=== PATIENT | female | born 1980 | race Caucasian/White ===

== ENCOUNTER → 2018-01-27 09:28 | Outpatient (CLI) | payer BC, SELFPAY ==
[2018-02-02 11:22] LABS: HPV APTIMA, High Risk Negative (Negative)
== END ==
PROVIDERS: Family Provider Family Medicine; PCP Family Medicine; Visit Provider Nurse Practitioner Women's Health
DX: Z12.4 Encounter for screening for malignant neoplasm of cervix (principal)
CPT/HCPCS: 88175; G0145

== ENCOUNTER → 2018-04-26 13:52 | Outpatient (CLI) | payer BC, SELFPAY ==
--- NOTE | 2018-04-26 13:54 | ECHOD_ITS ---
Reason For Study: ARRYTHMIA Procedure This was a 2D Doppler, Color Flow transthoracic echocardiogram. Technically limited apical views due to patient breast implants. Exam performed in department. Left Ventricle Normal LV size. Left ventricular systolic function is normal. The estimated ejection fraction is 60 %. No evidence for diastolic dysfunction. No regional wall motion abnormalities noted. Right Ventricle Normal RV size. Normal systolic function. Atria Normal left atrium. Normal right atrium. Mitral Valve Normal mitral valve. Tricuspid Valve Normal tricuspid valve. Aortic Valve Normal aortic valve. Trisinus/trileaflet aortic valve. Pulmonic Valve Normal pulmonic valve. Great Vessels Normal aortic root. The pulmonary artery is normal size. Pericardium/Pleural No pericardial effusion. MMode/2D Measurements & Calculations LVIDd: 3.7 cm IVSd: 0.68 cm LA dimension: 2.6 cm LVIDs: 2.5 cm LVPWd: 0.66 cm RVDd: 2.9 cm FS: 32.4 % LAV(MOD-sp4): 19.7 ml LA A4 area: 10.5 cm2 RA A4 area: 8.6 cm2 Time Measurements MV dec time: 0.23 sec Doppler Measurements & Calculations MV E max valerio: 64.2 cm/sec Lat Peak E' Valerio: 9.7 cm/sec Med Peak E' Valerio: 11.8 cm/sec MV A max valerio: 50.7 cm/sec E/E' lat: 6.6 E/E' med: 5.4 MV E/A: 1.3 Ao V2 max: 114.4 cm/sec LV V1 max: 76.1 cm/sec PA V2 max: 90.9 cm/sec Ao max P.2 mmHg LV V1 max P.3 mmHg Interpretation Summary Normal LV size. Left ventricular systolic function is normal. The estimated ejection fraction is 60 %. No evidence for diastolic dysfunction. Compared to prior study, there is no significant change. Ordering Physician: Edouard Nash Referring Physician: HERNANDEZ BLOOM Performed By: Tiffanie Patirck RDCS
== END ==
PROVIDERS: Family Provider Family Medicine; PCP Family Medicine; Visit Provider Internal Medicine Cardiovascular Disease
DX: R94.31 Abnormal electrocardiogram [ECG] [EKG] (principal)
CPT/HCPCS: 93306

== ENCOUNTER → 2018-05-04 09:00 | Outpatient (CLI) | payer BC, SELFPAY ==
[2018-05-04 12:10] LABS: Absolute Lymphocyte Count 1.31 X10^3/ul (0.83-4.51); Absolute Neutrophil Count 3.8 X10^3/uL (2.0-7.7); Basophil# 0.01 X10^3/uL; Basophil% 0.2 % (0-1); Eosinophil# 0.06 X10^3/uL; Eosinophils% 1.1 % (0-5); Hemoglobin 13.6 g/dl (12.0-15.0); Lymphocyte # 1.31 X10^3/ul (4.0); Lymphocyte % 23.6 % (19-41); Mean Corpuscular Hgb 29.7 pg (27.0-32.0); Mean Corpuscular Volume 87.3 fL (81-99); Mean Platelet Vol. 10.4 fl (6.2-12.0); Monocyte% 7.2 % (0-10); Neutrophil # 3.76 X10^3/uL (2.7-7.7); Neutrophil % 67.7 % (47-70); Platelet Count 232 K/mm3 (150-450); RBC Distribution Width CV 12.2 % (11.6-14.6); RBC Distribution Width SD 38.9 fl (35.1-43.9); Red Blood Count 4.58 M/mm3 (4.2-5.4); White Blood Count 5.6 K/mm3 (4.4-11.0)
[2018-05-04 12:11] LABS: POSITIVE COUNT NO; POSITIVE DIFFERENTIAL NO; POSITIVE MORPHOLOGY NO
[2018-05-04 12:28] LABS: T3 Total - Triiodothyronine 0.86 ng/mL (0.6-1.81)
[2018-05-04 12:33] LABS: ALB/GLOB Ratio 1.2 RATIO (0.9-2.4); AST(SGOT) 13 U/L (15-37); Alanine Aminotransfer ALT/SGPT 20 U/L (13-56); Albumin, Serum 4.1 g/dL (3.2-5.0); Alkaline Phosphatase 49 U/L (45-117); Anion Gap 8 (5-15); BUN 15 mg/dL (7-18); BUN/Creat Ratio 14.6 RATIO (10-20); Calcium,Total 9.2 mg/dL (8.5-10.1); Chloride 106 mmol/L (98-107); Cholesterol 138 mg/dL (200); Creatinine, Serum 1.03 mg/dL (0.55-1.02); EST Glomerular Filtration Rate 63 mL/min (>60); Est Glom Filt Rate - Afr Amer 77 mL/min (>60); Ferritin 26 ng/mL (8-252); Globulin 3.4 g/dL (2.2-4.2); Glucose 62 mg/dL (74-106); High Density Lipoprotein 62 mg/dL; Iron 80 ug/dL (50-170); Protein, Total 7.5 g/dL (6.4-8.2); Sodium Level 141 mmol/L (136-145); T4 Free Direct 1.06 ng/dL (0.76-1.46); Thyroid Stim Hormone (TSH) 1.85 uIU/mL (0.358-3.74); Triglycerides 38 mg/dL; Very Low Density Lipoprotein 8 mg/dL (5-40)
== END ==
PROVIDERS: Family Provider Family Medicine; PCP Family Medicine; Visit Provider Family Medicine
DX: R53.83 Other fatigue (principal); Z51.81 Encounter for therapeutic drug level monitoring; E78.5 Hyperlipidemia, unspecified; E61.1 Iron deficiency
CPT/HCPCS: 36415; 80053; 80061; 82728; 83540; 84439; 84443; 84480; 85025

== ENCOUNTER → 2020-07-24 09:24 | Outpatient (CLI) | payer BC, SELFPAY ==
[2018-01-27 10:23] VITALS: BMI 20.7
[2020-07-24 12:25] LABS: Absolute Lymphocyte Count 1.38 X10^3/uL (0.83-4.51); Absolute Neutrophil Count 4.6 X10^3/uL (2.0-7.7); Basophil# 0.03 X10^3/uL; Basophil% 0.5 % (0-1); Eosinophil# 0.07 X10^3/uL; Eosinophils% 1.1 % (0-5); Hematocrit 42.1 % (37-47); Hemoglobin 14.2 g/dL (12.0-15.0); Lymphocyte # 1.38 X10^3/ul (4.0); Lymphocyte % 21.5 % (19-41); Mean Corp Hgb Conc 33.7 g/dL (32-36); Mean Corpuscular Hgb 29.6 pg (27.0-32.0); Mean Corpuscular Volume 87.7 fL (81-99); Mean Platelet Vol. 10.1 fl (6.2-12.0); Monocyte# 0.36 X10^3/uL; Monocyte% 5.6 % (0-10); NRBC Flagged by Analyzer 0 % (0-5); Neutrophil # 4.57 X10^3/uL (2.7-7.7); Platelet Count 295 K/mm3 (150-450); RBC Distribution Width SD 38.6 fl (35.1-43.9); White Blood Count 6.4 K/mm3 (4.4-11.0)
[2020-07-24 12:27] LABS: ALB/GLOB Ratio 1.2 RATIO (0.9-2.4); AST(SGOT) 11 U/L (15-37); Alanine Aminotransfer ALT/SGPT 17 U/L (13-56); Albumin, Serum 4.2 g/dL (3.2-5.0); Alkaline Phosphatase 53 U/L (45-117); Anion Gap 7 (5-15); BUN 16 mg/dL (7-18); BUN/Creat Ratio 15.2 RATIO (10-20); Calcium,Total 9.1 mg/dL (8.5-10.1); Chloride 104 mmol/L (98-107); Cholesterol 155 mg/dL (200); Creatinine, Serum 1.05 mg/dL (0.55-1.02); EST Glomerular Filtration Rate 61 mL/min (>60); Est Glom Filt Rate - Afr Amer 74 mL/min (>60); Globulin 3.5 g/dL (2.2-4.2); Glucose 80 mg/dL (74-106); High Density Lipoprotein 68 mg/dL; Potassium 3.8 mmol/L (3.5-5.1); Protein, Total 7.7 g/dL (6.4-8.2); Sodium Level 138 mmol/L (136-145); Triglycerides 40 mg/dL; Very Low Density Lipoprotein 8 mg/dL (5-40)
== END ==
PROVIDERS: PCP Family Medicine; Visit Provider Family Medicine
DX: Z13.220 Encounter for screening for lipoid disorders (principal); Z13.1 Encounter for screening for diabetes mellitus; R53.83 Other fatigue
CPT/HCPCS: 36415; 80053; 80061; 85025

== ENCOUNTER → 2022-12-04 | Outpatient (CLI) | payer BC, SELFPAY ==
[2022-12-04 17:09] LABS: Anion Gap 3 (5-15); BUN 15 mg/dL (7-18); BUN/Creat Ratio 14.9 RATIO (10-20); Calcium,Total 9.4 mg/dL (8.5-10.1); Chloride 105 mmol/L (98-107); Creatinine, Serum 1.01 mg/dL (0.55-1.02); EST Glomerular Filtration Rate 63 mL/min (>60); Est Glom Filt Rate - Afr Amer 77 mL/min (>60); Glucose 92 mg/dL (74-106); Potassium 4.4 mmol/L (3.5-5.1); Sodium Level 139 mmol/L (136-145); Thyroid Stim Hormone (TSH) 2.14 uIU/mL (0.358-3.74)
== END | disposition home or self-care (01) ==
LOC: LAB 15:52
PROVIDERS: PCP Family Medicine; Visit Provider Internal Medicine Cardiovascular Disease
DX: I48.91 Unspecified atrial fibrillation (principal)
CPT/HCPCS: 36415; 80048; 83735; 84443

== ENCOUNTER → 2023-01-06 | Outpatient (CLI) | payer BC, SELFPAY ==
[2023-01-06 15:26] LABS: Erythrocyte Sedimentation Rate 8 mm/hr (0-30)
[2023-01-06 15:34] LABS: ALB/GLOB Ratio 1.3 RATIO (0.9-2.4); AST(SGOT) 17 U/L (15-37); Alanine Aminotransfer ALT/SGPT 23 U/L (13-56); Albumin, Serum 4.2 g/dL (3.2-5.0); Alkaline Phosphatase 55 U/L (45-117); Anion Gap 6 (5-15); BUN 20 mg/dL (7-18); BUN/Creat Ratio 20.7 RATIO (10-20); CRP < 2.90 mg/L (0.0-3.0); Calcium,Total 9.2 mg/dL (8.5-10.1); Chloride 105 mmol/L (98-107); Creatinine, Serum 0.97 mg/dL (0.55-1.02); EST Glomerular Filtration Rate 66 mL/min (>60); Est Glom Filt Rate - Afr Amer 80 mL/min (>60); Globulin 3.3 g/dL (2.2-4.2); Glucose 82 mg/dL (74-106); Potassium 3.9 mmol/L (3.5-5.1); Protein, Total 7.5 g/dL (6.4-8.2); Sodium Level 137 mmol/L (136-145)
[2023-01-06 15:41] LABS: Absolute Lymphocyte Count 1.78 X10^3/uL (0.83-4.51); Absolute Neutrophil Count 4.1 X10^3/uL (2.0-7.7); Basophil# 0.02 X10^3/uL; Basophil% 0.3 % (0-1); Eosinophil# 0.09 X10^3/uL; Eosinophils% 1.4 % (0-5); Hemoglobin 13.6 g/dL (12.0-15.0); Lymphocyte # 1.78 X10^3/ul (0.83-4.51); Lymphocyte % 27.8 % (19-41); Mean Corpuscular Hgb 29.1 pg (27.0-32.0); Mean Corpuscular Volume 85.7 fL (81-99); Mean Platelet Vol. 10.8 fl (6.2-12.0); Monocyte# 0.45 X10^3/uL; NRBC Flagged by Analyzer 0 % (0-5); Neutrophil # 4.06 X10^3/uL (2.7-7.7); Neutrophil % 63.3 % (47-70); Platelet Count 254 K/mm3 (150-450); RBC Distribution Width CV 12.2 % (11.6-14.6); Red Blood Count 4.67 M/mm3 (4.2-5.4); White Blood Count 6.4 K/mm3 (4.4-11.0)
[2023-01-08 15:08] LABS: Endomysial Antibody IgA Negative (Negative)
[2023-01-08 15:09] LABS: Immunoglobulin A 140 mg/dL (87-352); t-Transglutaminase IgA <2 U/mL (0-3)
== END | disposition home or self-care (01) ==
LOC: BFHLAB 12:13
PROVIDERS: PCP Family Medicine; Referring Provider Family Medicine; Visit Provider Family Medicine
DX: R10.9 Unspecified abdominal pain (principal); K21.00 Gastro-esophageal reflux disease with esophagitis, without bleeding; R14.0 Abdominal distension (gaseous)
CPT/HCPCS: 36415; 80053; 82784; 83516; 85025; 85652; 86140; 86255

== ENCOUNTER → 2023-01-14 | Outpatient (CLI) | payer BC, SELFPAY ==
--- NOTE | 2023-01-14 17:08 | RAD_ITS ---
INDICATION: NECK PAIN EXAMINATION/TECHNIQUE: X-RAY - XR Spine Cervical 6 or More Views COMPARISON: None. FINDINGS: VERTEBRAE: Vertebral body height is maintained. Disc space narrowing marginal osteophyte formation at C5-6. No evidence of fracture destructive bony process. No abnormal alignment on flexion and extension views. Odontoid process and prevertebral soft tissue planes have normal appearance. DISCS: Disc space narrowing at C5-6. Neural foramina are widely patent bilaterally. NECK SOFT TISSUES: No prevertebral soft tissue widening. LUNG APICES: Clear. RAD/Cerv Spine Obl/Flex/Ext Comp IMPRESSION: 1. Mild cervical spondylosis most notable at C5-6 with disc space narrowing marginal osteophyte formation. 2. No evidence fracture malalignment or abnormal motion.. Electronically Signed: Reilly Dawkins MD at 20:00 EDT ,
== END | disposition home or self-care (01) ==
LOC: MTRAD 17:06
PROVIDERS: PCP Family Medicine; Referring Provider Family Medicine; Visit Provider Family Medicine
DX: M54.2 Cervicalgia (principal); M54.12 Radiculopathy, cervical region
CPT/HCPCS: 72052

== ENCOUNTER 2023-03-04 07:00 | Outpatient (RCR) | payer BC, SELFPAY ==
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
--- NOTE | 2023-03-04 07:35 | HP.PTDCSUM_ITS ---
It has been my pleasure to treat YANNI WOODARD referred by Dr. Dali Hutson DO, with the diagnosis of Cervicalgia and Right Shoulder Pain for a total of 9 visit(s). Discharge Date: 03/04/23 Please see the following information for a summary of their discharge status. Subjective: Pt. reports having some short term relief with some of the manual techniques, but nothing long lasting at this point in time. She does continue to have some burning in her levator scapulae region, especially at work. R scapular region Pain Intensity (Out of 10): 1 % Improvement: 25 Objective/Function: Pt. has good ROM and decent strength, but does tend to fall into more flexed thoracic spine postures. Pt. is able to correct with VCing. We talked and her computer station at work, sounds like it could be modified to assist with proper posture. Pt. to look into this. I talked to her about stren gthening both mid and Upper trap to reduce stress to levator scap region. She is going to add these into her routine. At this point in time, she is going to trial these on her own and follow up with physician if not improving. Goal 1:: Patient will be I with HEP and progression Goal Progress: Progressing Goal 2:: Patient will maintain proper posture t/o tx session to demo increased scap s/s Goal Progress: Progressing Goal 3:: Patient will demo full cervical ROM without pain Goal Progress: Goal Met Goal 4:: Patient will report 80% improvement Goal Progress: Not Progressing Plan: Pt. to trial on her own at this point in time. Pt. will follow up with physician if not improving. She is going to work on stretching and UT/mid trap strengthening to reduce stress to levator scap with all work and recreational activities. Discharge Comments: Pt. will be Dc to HEP at this point in time. She has has some improvement, but plans to work on her strengthening independently at this point in time. Not a ton of improvement has been made, hopefully with further strengthening she will improve more. If there are questions or concerns regarding this patient's physical therapy, please feel free to call me at [phone]. Thank you for the referral of this patient. Sincerely, Westley Monae Sipos, DPT Balance/Gait/Functional tests - Balance/Special Test Scores Oswestry Neck Score: 5
== END 2023-03-04 19:00 | disposition home or self-care (01) ==
LOC: PT 07:00
PROVIDERS: PCP Family Medicine; Visit Provider Family Medicine
DX: M25.511 Pain in right shoulder (principal); M50.322 Other cervical disc degeneration at C5-C6 level
CPT/HCPCS: 97035; 97110; 97140; 97162

== ENCOUNTER → 2023-06-03 | Outpatient (CLI) | payer BC, SELFPAY ==
[2023-06-03 09:05] LABS: Erythrocyte Sedimentation Rate 9 mm/hr (0-30)
[2023-06-03 09:11] LABS: Absolute Lymphocyte Count 1.34 X10^3/uL (0.83-4.51); Absolute Neutrophil Count 8.6 X10^3/uL (2.0-7.7); Basophil# 0.05 X10^3/uL; Basophil% 0.5 % (0-1); Eosinophil# 0.11 X10^3/uL; Hematocrit 41.7 % (37-47); Hemoglobin 13.8 g/dL (12.0-15.0); Lymphocyte # 1.34 X10^3/ul (0.83-4.51); Lymphocyte % 12.6 % (19-41); Mean Corp Hgb Conc 33.1 g/dL (32-36); Mean Corpuscular Hgb 28.8 pg (27.0-32.0); Mean Corpuscular Volume 87.1 fL (81-99); Mean Platelet Vol. 10.5 fl (6.2-12.0); Monocyte# 0.55 X10^3/uL; Monocyte% 5.2 % (0-10); NRBC Flagged by Analyzer 0 % (0-5); Neutrophil # 8.58 X10^3/uL (2.7-7.7); Neutrophil % 80.3 % (47-70); Platelet Count 278 K/mm3 (150-450); RBC Distribution Width CV 11.9 % (11.6-14.6); RBC Distribution Width SD 38.5 fl (35.1-43.9); Red Blood Count 4.79 M/mm3 (4.2-5.4); White Blood Count 10.7 K/mm3 (4.4-11.0)
[2023-06-03 09:17] LABS: Amylase 89 U/L (25-115); CRP 8.48 mg/L (0.0-3.0); Ferritin 21 ng/mL (8-252); LDH 200 U/L (84-246); Lipase 62 U/L (13-75)
[2023-06-06 01:06] LABS: Anti-Centromere B Ab <0.2 AI (0.0-0.9); Anti-Chromatin <0.2 AI (0.0-0.9); Anti-Jo <0.2 AI (0.0-0.9); Anti-Scleroderma-70 AB <0.2 AI (0.0-0.9); Anti-dsDNA Ab <1 IU/mL (0-9); Beef <0.10 kU/L (Class 0); Chocolate <0.10 kU/L (Class 0); Clam <0.10 kU/L (Class 0); Codfish <0.10 kU/L (Class 0); Corn <0.10 kU/L (Class 0); Egg, White <0.10 kU/L (Class 0); Egg, Whole <0.10 kU/L (Class 0); Milk (Cow) <0.10 kU/L (Class 0); Peanut <0.10 kU/L (Class 0); Pork <0.10 kU/L (Class 0); RNP Ab <0.2 AI (0.0-0.9); SCALLOP <0.10 kU/L (Class 0); SESAME SEED <0.10 kU/L (Class 0); SJOGREN'S Anti-SS-A test < 0.2 AI (0.0-0.9); SJOGREN'S Anti-SS-B test < 0.2 AI (0.0-0.9); Shrimp <0.10 kU/L (Class 0); Smith Ab <0.2 AI (0.0-0.9); Soybean <0.10 kU/L (Class 0); Walnut, (Food) <0.10 kU/L (Class 0); Wheat <0.10 kU/L (Class 0)
[2023-06-07 05:06] LABS: Alpha-1-Globulins 0.3 g/dL (0.0-0.4); Alpha-2-Globulins 0.7 g/dL (0.4-1.0); Cytoplasmic Ab (C-ANCA) <1:20 titer (Neg:<1:20); Endomysial Antibody IgA Negative (Negative); Immunoglobulin A 157 mg/dL (87-352); Immunoglobulin E 46 IU/mL (6-495); Immunoglobulin G 1076 mg/dL (586-1602); Immunoglobulin M 106 mg/dL (26-217); Perinuclear Ab (P-ANCA) <1:20 titer (Neg:<1:20); t-Transglutaminase IgA <2 U/mL (0-3)
== END | disposition home or self-care (01) ==
LOC: LAB 08:18
PROVIDERS: PCP Family Medicine; Referring Provider Internal Medicine Gastroenterology; Visit Provider Internal Medicine Gastroenterology
DX: K21.9 Gastro-esophageal reflux disease without esophagitis (principal)
CPT/HCPCS: 36415; 82150; 82728; 82784; 82785; 83516; 83615; 83690; 84165; 85025; 85652; 86003; 86005; 86140; 86225; 86235; 86255; 86256; 86334

== ENCOUNTER → 2023-07-13 | Outpatient (CLI) | payer BC, SELFPAY ==
[2023-07-13 15:47] LABS: Mucous, Urine 0 SEEN /hpf (<or=2+)
[2023-07-13 15:55] LABS: Color, Urine Yellow (Yellow); Glucose, Dipstick Normal (Normal); Ketone-Dipstick Negative (Negative); Leukocyte Esterase-Dipstick 100 /ul (Negative); Nitrite-Dipstick Positive (Negative); Occult Blood-Urine 250 /ul (Negative); Protein-Dipstick 30 mg/dl (Negative); Urine Bilirubin Dipstick Negative (Negative); Urine Clarity Clear (Clear); Urine Urobilinogen 1 mg/dl (Normal)
[2023-07-13 16:09] LABS: Bacteria RARE /hpf (None Seen); Red Blood Cells-Urine 5-10 SEEN /hpf (0-5); Squamous Epithelial Cells - UA 0-5 SEEN /hpf (5-10); White Blood Cells 5-10 SEEN /hpf (0-5)
== END | disposition home or self-care (01) ==
LOC: LABSPEC 15:30
PROVIDERS: PCP Family Medicine; Referring Provider Physician Assistant; Visit Provider Physician Assistant
DX: R30.0 Dysuria (principal); N39.0 Urinary tract infection, site not specified
CPT/HCPCS: 81001; 87086; 87088; 87186

== ENCOUNTER 2023-07-29 07:45 | Day surgery (SDC) | payer BC, SELFPAY ==
[2023-07-29 08:07] VITALS: BP 121/75; PULSE 77; RESP 16; TEMP 36.9; O2SAT 100; BMI 22.8
[2023-07-29] MEDS: Lactated Ringers 1,000 ML 15 ML IV (08:10)
[2023-07-29 08:15] LABS: Internal QC Validated? YES +Cl - CLEAR BKGD; Pregnancy, Urine Negative Negative
[2023-07-29 08:16] LABS: Record Kit Lot#,Urine Preg HCG0000667200
--- NOTE | 2023-07-29 08:45 | EGD_PTH ---
PATIENT: YANNI WOODARD LOC: EN U#:[id number] AGE/SX: 42/F ROOM: RE07/29/[address]: Dr. Cedric Renae DO : 1980 BED: DIS: 07/29/2023 SPEC #: [id number] RECD: 07/29/23 12:11 STATUS: CHAITANYA REJose #: [id number] FRANCK: 07/29/23 08:[address]: Cedric Renae DEPT: SURGICAL PATHOLOGY RECD BY: Marylu Chavez ENTERED: 07/29/23 12:59 SP TYPE: EGD BIOPSY OT DR: Dr. Dali Hutson DO Tissues: A - Esophagus, NOS B - Esophagus, NOS Procedures: Special Stain Group II Surgery Specimen Level IV Alcian Blue/PAS (control) HEADER OPERATION: EGD with biopsy PRE-OP DIAGNOSIS: GERD TISSUE SUBMITTED: A - Distal esophagus biopsy, B - Random esophagus biopsy MICROSCOPIC DIAGNOSIS A. Distal esophagus, biopsy: Fragments of gastroesophageal mucosa with chronic inflammation. Intestinal metaplasia (goblet cell metaplasia) not identified. See comment. B. Esophagus, random biopsy: Fragments of benign squamous epithelium. A minute fragment of gastric epithelium. Intestinal metaplasia (goblet cell metaplasia) not identified. See comment. PRISCILLA:ayo 07/30/2023 COMMENT A & B. Alcian blue/PAS stain with matched control is used in the evaluation of the specimen. MICROSCOPIC DESCRIPTION Slides are reviewed. GROSS DESCRIPTION A - Received in fixative is one container labeled with the patient's name and designated distal esophagus. The specimen consists of multiple irregular fragments of light camargo soft tissue that in aggregate measure 1.0 x 0.3 x 0.1 cm. The specimen is totally submitted in one cassette. B - Received in fixative is one container labeled with the patient's name and designated random esophagus biopsy. The specimen consists of multiple irregular fragments of light camargo soft tissue that in aggregate measure 1.0 x 0.4 x 0.1 cm. The specimen is totally submitted in one cassette. / SJ:ayo 07/29/2023 TC:3 CPT: 95654 x2, 88112 x2
--- NOTE | 2023-07-29 08:58 | PCM.HP.BLA ---
History and Physical Date of Admission: 07/29/23 42 F who presents to the office today for PCP OV noting history of GERD with ongoing use of Carafate and omeprazole. *BGI established 8.24.23 with reflux with regurgitation and globus sensation; no identifiable aggravating/alleviating factors. Omeprazole 20mg QD does not seem to make a difference; BID administration did not make a difference. Carafate was not taken as she forgot about it. No EGD history. ROS Const Constitutional: No anorexia, fatigue, fever(s), weight change or sleep problems Eyes Eyes: No change in vision ENT ENT: No abnormal hearing, difficulty swallowing, mouth lesions, tongue swelling or throat swelling Resp Respiratory: No cough or shortness of breath Cardio Cardiology: No chest pain at rest, chest pain with exertion, shortness of breath or dyspnea on exertion Gastro GI: No difficulty swallowing Genitourinary-Female: No difficulty urinating or burning urination Musc Musculoskeletal: No joint pain, joint swelling, muscle weakness or decreased muscle mass Skin Skin: No hair loss in leg, yellowing of the eye, itchy eyes, rash, skin ulcer or skin swelling Neuro Neurology: No abnormal hearing, abnormal movements, confusion, unsteady gait/balance or memory loss Psych Psychiatric: No anxiety, No confusion and No memory loss Endo Endocrine: No fatigue or weight change Aller/Imm Allergy/Immunologic: No itchy eyes, throat swelling or tongue swelling Robert/Lymp Hematologic/Lymphatic: No easy bleeding, easy bruising or enlarged lymph nodes Exam Const General: cooperative and comfortable Nutritional Appearance: average body habitus and well nourished [facility] Head: normal to inspection Ears: hearing grossly normal bilaterally Nose: external nose normal Face and sinus: normal facial exam Mouth: oral mucosae normal Throat: posterior oropharynx normal Eyes General: appearance normal, both eyes and all related structures Neck Neck: normal visual inspection Chest Chest palpation & inspection: normal inspection of the chest and normal palpation of entire chest wall Resp Effort & Inspection: normal respiratory effort Auscultation: Bilateral: Clear to Auscultation Cardio Palpation: normal PMI Rate: regular rate Rhythm: regular rhythm GI Inspection: normal to inspection Auscultation: normal bowel sounds Percussion: normal to percussion Palpation: no hepatosplenomegaly Skin General: no rashes or lesions noted Neuro General: patient alert Extrem General: normal to inspection Psych Affect: normal affect Quality Reporting Tobacco Screening ([facility] 138) Smoking Status: Never smoker Assessment and Plan Assessment and Plan (1) GERD (gastroesophageal reflux disease): Status: Chronic Qualifiers: Esophagitis presence: esophagitis presence not specified Qualified Code(s): K21.9 - Gastro-esophageal reflux disease without esophagitis Plan: 42-year-old with past medical history of multifocal ventricular tachycardia, atrial fibrillation with rapid ventricular response status post BiV AICD on sotalol and metoprolol therapy. She has been stable from a cardiac standpoint. Her last ejection fraction was 53% with mild myocardial fibrosis. She arrives here for the evaluation of refractory gastroesophageal reflux disease to standard of care therapy. Differential diagnosis does include medication side effect causing dilation of the lower esophageal sphincter vs non erosive acid reflux disease. She should undergo an upper endoscopy off of PPI therapy with Duncan placement. She should also get biochemical testing for autoimmune diseases such as scleroderma, Sjogren syndrome and other autoimmune diseases that can affect the esophagus and lower esophageal sphincter. Orders: Orders ANCA Today K21.9 - Gastro-esophageal reflux disease without esophagitis Immunoglobulin E Today K21.9 - Gastro-esophageal reflux disease without esophagitis LDH Today K21.9 - Gastro-esophageal reflux disease without esophagitis Ferritin Today K21.9 - Gastro-esophageal reflux disease without esophagitis CRP Today K21.9 - Gastro-esophageal reflux disease without esophagitis Celiac Disease Profile Today K21.9 - Gastro-esophageal reflux disease without esophagitis CBC W/Diff, Automated Today K21.9 - Gastro-esophageal reflux disease without esophagitis Amylase Today K21.9 - Gastro-esophageal reflux disease without esophagitis Lipase Today K21.9 - Gastro-esophageal reflux disease without esophagitis SANTY + Protein Elect, Serum Today K21.9 - Gastro-esophageal reflux disease without esophagitis IDA Comprehensive Panel Today K21.9 - Gastro-esophageal reflux disease without esophagitis Allergen, Food Profile Today K21.9 - Gastro-esophageal reflux disease without esophagitis Allergen, Rast Food Profile Today K21.9 - Gastro-esophageal reflux disease without esophagitis Erythrocyte Sed Rate Today K21.9 - Gastro-esophageal reflux disease without esophagitis EGD with 48 pH probe 07/29/23 K21.9 - Gastro-esophageal reflux disease without esophagitis I have examined the patient and the H&P has been reviewed. There are no clinical changes since date of exam.
[2023-07-29 09:22] VITALS: BP 121/75; BP 93/60; PULSE 75; RESP 16; TEMP 36.8; O2SAT 96
--- NOTE | 2023-07-29 09:23 | OP.EGD_ITS ---
Patient Name: Tyesha Ramirez Procedure Date: 07/29/2023 9:01 AM Date of : 1980 Age: 42 Procedure: Upper GI endoscopy Indications: Suspected esophageal reflux Providers: Cedric Renae DO Medicines: Monitored Anesthesia Care Patient Profile: This is a 42 year old female. Refer to note in patient chart for documentation of history and physical. Patient has symptoms of chronic heartburn and chronic throat burning. Complications: No immediate complications. Procedure: Pre-Anesthesia Assessment: - Prior to the procedure, a History and Physical was performed, and patient medications and allergies were reviewed. The patient is competent. The risks and benefits of the procedure and the sedation options and risks were discussed with the patient. All questions were answered and informed consent was obtained. Patient identification and proposed procedure were verified by the physician in the pre-procedure area. Mental Status Examination: normal. Airway Examination: normal oropharyngeal airway and neck mobility. Respiratory Examination: clear to auscultation. CV Examination: normal. Prophylactic Antibiotics: The patient does not require prophylactic antibiotics. Prior Anticoagulants: The patient has taken no anticoagulant or antiplatelet agents. ASA Grade Assessment: II - A patient with mild systemic disease. After reviewing the risks and benefits, the patient was deemed in satisfactory condition to undergo the procedure. The anesthesia plan was to use monitored anesthesia care (MAC). Immediately prior to administration of medications, the patient was re-assessed for adequacy to receive sedatives. The heart rate, respiratory rate, oxygen saturations, blood pressure, adequacy of pulmonary ventilation, and response to care were monitored throughout the procedure. The physical status of the patient was re-assessed after the procedure. After obtaining informed consent, the endoscope was passed under direct vision. Throughout the procedure, the patient's blood pressure, pulse, and oxygen saturations were monitored continuously. The Endoscope was introduced through the mouth, and advanced to the second part of duodenum. The upper GI endoscopy was accomplished without difficulty. The patient tolerated the procedure well. Scope In: 9:09:51 AM Scope Out: 9:13:32 AM Total Procedure Duration Time 0 hours 3 minutes 41 seconds Findings: Mucosal changes including small-caliber esophagus and longitudinal markings were found in the middle third of the esophagus. Biopsies were obtained from the proximal and distal esophagus with cold forceps for histology of suspected eosinophilic esophagitis. Verification of patient identification for the specimen was done. Estimated blood loss was minimal. The Z-line was irregular and was found 39 cm from the incisors. Biopsies were taken with a cold forceps for histology. Verification of patient identification for the specimen was done. Estimated blood loss was minimal. The entire examined stomach was normal. The second portion of the duodenum was normal. Impression: - Esophageal mucosal changes suggestive of eosinophilic esophagitis. - Z-line irregular, 39 cm from the incisors. Biopsied. - Normal stomach. - Normal second portion of the duodenum. - Biopsies were taken with a cold forceps for evaluation of eosinophilic esophagitis. Recommendation: - Discharge patient to home. - Resume previous diet. - Continue present medications. - Await pathology results. Procedure Code(s): --- Professional --- 20846, Esophagogastroduodenoscopy, flexible, transoral; with biopsy, single or multiple CPT copyright 2021 [employer] [place] [employer]. All rights reserved. The codes documented in this report are preliminary and upon case mgr review may be revised to meet current compliance requirements. Cedric Renae DO 07/29/2023 9:23:10 AM This report has been signed electronically. Number of Addenda: 0 Note Initiated On: 07/29/2023 9:01 AM
--- NOTE | 2023-07-29 09:23 | OP.CCLET_ITS ---
07/29/2023 Dali Hutson [address] [place] [address] Re : Upper GI endoscopy procedure for Tyesha Moralesant Dear Dr. Hutson This procedure was performed on July. My impressions and recommendations are as follows: Impressions : - Esophageal mucosal changes suggestive of eosinophilic esophagitis. - Z-line irregular, 39 cm from the incisors. Biopsied. - Normal stomach. - Normal second portion of the duodenum. - Biopsies were taken with a cold forceps for evaluation of eosinophilic esophagitis. Recommendations : - Discharge patient to home. - Resume previous diet. - Continue present medications. - Await pathology results. My findings are described in the full procedure note, which is enclosed. If I can be of further assistance, please feel free to contact me at . Sincerely, Cedric Renae, 07/29/2023 9:23:10 AM This report has been signed electronically.
[2023-07-29 09:25] VITALS: BP 106/65; BP 121/75; PULSE 90; RESP 16; O2SAT 97
[2023-07-29 09:30] VITALS: BP 110/67; BP 121/75; PULSE 79; RESP 16; O2SAT 97
[2023-07-29 09:35] VITALS: BP 113/70; BP 121/75; PULSE 75; RESP 16; TEMP 37; O2SAT 97
== END 2023-07-29 10:19 | disposition home or self-care (01) ==
LOC: EN 07:45 → AC 07:46
PROVIDERS: Anesthesiology; PCP Family Medicine; Referring Provider Family Medicine; Visit Provider Internal Medicine Gastroenterology
PROC: (CPT 43235; principal; 2023-07-29 08:40)
DX: K21.9 Gastro-esophageal reflux disease without esophagitis (principal)
CPT/HCPCS: 43239; 81025; 88305; 88313; J7120; A4216

== ENCOUNTER → 2023-12-24 | Outpatient (CLI) | payer BC, SELFPAY ==
[2023-12-24 12:00] LABS: Hematocrit 41.6 % (37-47); Hemoglobin 14.3 g/dL (12.0-15.0)
[2023-12-24 13:30] LABS: Anion Gap 4 (5-15); BUN 14 mg/dL (7-18); BUN/Creat Ratio 14.9 RATIO (10-20); Calcium,Total 9.4 mg/dL (8.5-10.1); Chloride 108 mmol/L (98-107); Creatinine, Serum 0.94 mg/dL (0.55-1.02); EST Glomerular Filtration Rate 68 mL/min (>60); Est Glom Filt Rate - Afr Amer 83 mL/min (>60); Free T3 2.8 pg/mL (2.18-3.98); Glucose 72 mg/dL (74-106); Potassium 3.9 mmol/L (3.5-5.1); Sodium Level 140 mmol/L (136-145); T4 Free Direct 1.08 ng/dL (0.76-1.46); Thyroid Stim Hormone (TSH) 1.95 uIU/mL (0.358-3.74)
== END | disposition home or self-care (01) ==
LOC: LAB 11:29
PROVIDERS: PCP Family Medicine; Referring Provider Physician Assistant Medical; Visit Provider Physician Assistant Medical
DX: I47.20 Ventricular tachycardia, unspecified (principal); I48.0 Paroxysmal atrial fibrillation
CPT/HCPCS: 36415; 80048; 83735; 84439; 84443; 84481; 85014; 85018

== ENCOUNTER → 2024-01-31 | Outpatient (CLI) | payer BC, SELFPAY | END | disposition home or self-care (01) | LOC: PSN 06:56 | PROVIDERS: PCP Family Medicine; Referring Provider Physician Assistant Medical; Visit Provider Physician Assistant Medical | DX: I47.20 Ventricular tachycardia, unspecified (principal) | CPT/HCPCS: 93225; 93226 ==

== ENCOUNTER 2024-09-18 06:36 | Day surgery (SDC) | payer BC, SELFPAY ==
[2024-09-18] VITALS (8 sets, daily range): BP systolic 91–124; BP diastolic 62–80; PULSE 73–88; RESP 16; TEMP 36.3–36.4; O2SAT 98–100; BMI 22.4
--- NOTE | 2024-09-18 | COLBX_PTH ---
PATIENT: YANNI WOODARD LOC: EN U#:[id number] AGE/SX: 43/F ROOM: RE09/18/[address]: Dr. Cedric Renae DO : 1980 BED: DIS: 09/18/2024 SPEC #: [id number] RECD: 09/18/24 10:06 STATUS: CHAITANYA REJose #: [id number] FRANCK: 09/18/24 00:[address]: Cedric Renae DEPT: SURGICAL PATHOLOGY RECD BY: Abdulaziz Garcia ENTERED: 09/18/24 10:06 SP TYPE: COLON BX OTHR DR: Dr. Dali Hutson DO Tissues: COLON BIOPSY Procedures: Surgery Specimen Level IV HEADER OPERATION: Colonoscopy with biopsy PRE-OP DIAGNOSIS: Colon screening, GERD TISSUE SUBMITTED: Random colon biopsy MICROSCOPIC DIAGNOSIS Colon, random biopsy: Mild glandular distortion and focal denudation of mucosa. No evidence of colitis. AM.mr 09/19/2024 MICROSCOPIC DESCRIPTION Slides are reviewed. GROSS DESCRIPTION Received in fixative is one container labeled with the patient's name and designated Random colon biopsy. The specimen consists of multiple irregular fragments of light camargo soft tissue that in aggregate measure 1.0 x 0.5 x 0.1 cm. The specimen is totally submitted in one cassette. AM/ 09/18/2024 TC:5 CPT:39649
--- NOTE | 2024-09-18 06:46 | PCM.PRE.AN2 ---
ASA Classification* ASA Classification ASA Classification: 3 Assessment & Plan Anesthesia* Anesthesia Assessment Anesthesia Assessment: Discussed sedation and/or anesthesia options, risks, benefits, and alternatives with patient/parents/legal guardian/POA. Questions invited. The patient/parents/legal guardian/POA seems to understand and agrees to proceed with anesthesia plan. Reviewed the physical assessment, medical history, allergy history and patient home medications list prior to surgery/procedure/anesthetic and documented any changes. Performed airway and anesthesia risk assessments. Anesthesia Type Anesthesia Type: MAC (AICD) Anesthesia Focused Assessment* Airway Assessment Mouth opens: >3 cm Mallampati Score: II Focused Labs Anesthesia Preop lab: CBC WBC 10.7 K/mm3 (4.4-11.0) 06/03/23 08:20 RBC 4.79 M/mm3 (4.2-5.4) 06/03/23 08:20 Hgb 14.3 g/dL (12.0-15.0) 12/24/23 11:32 Hct 41.6 % (37-47) 12/24/23 11:32 Plt Count 278 K/mm3 (150-450) 06/03/23 08:20 CHEMISTRY Potassium 3.9 mmol/L (3.5-5.1) 12/24/23 11:32 Sodium 140 mmol/L (136-145) 12/24/23 11:32 Magnesium 2.0 mg/dL (1.6-2.6) 12/24/23 11:32 Phosphorus 3.4 mg/dL (2.5-4.9) 06/11/15 12:25 BUN 14 mg/dL (7-18) 12/24/23 11:32 Creatinine 0.94 mg/dL (0.55-1.02) 12/24/23 11:32 Glucose 72 mg/dL (74-106) L 12/24/23 11:32 TSH 1.95 uIU/mL (0.358-3.74) 12/24/23 11:32 COAG Urine Test Negative Negative 07/29/23 07:56 Pre-Assessment Diagnosis/Proposed Procedure Planned Operative Procedure(s): CSCOPE Anesthesia History 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 When Was Last Pacemaker Check QUESTION #4 FULL TEXT: You/Your Family Experience fever (hyperthermia) with Anesthesia Last Oral Intake Last Oral intake: Last Oral Intake NPO since Meds taken in AM with sips of water? 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 Has anyone observed you stop No 09/13/24 12:32 breathing during sleep? STOP Results Negative 09/13/24 12:32 QUESTION #5 FULL TEXT : Do you snore loudly (louder than talking or can be heard through closed doors)? 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 Specify any problems Hx of Preganancy in last 3 N/A 09/13/24 12:32 Months Nurse Filling Out Transfusion NBUCHER 09/13/24 12:32 & Questions: Date: 09/13/24 09/13/24 12:32 Time: 12:33 09/13/24 12:32 Patient unable to answer at this time (ie. 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: /Reproductive Hx- cnc mill set up operator Hx Now No 09/13/24 12:32 Gestational Age (in weeks): EDC: Hx Hx Para Hx Section SAB No 09/13/24 12:32 PFSH Medical History History of Holter monitoring Wears glasses Easy bruising Injury of head and neck Gastric reflux Non-smoker History of edema History of echocardiogram Cardiology follow-up encounter Dysphagia Sustained ventricular tachycardia (08/02/20) Atrial fibrillation with rapid ventricular response (08/02/20) Hirsutism Incomplete right bundle branch block Paroxysmal atrial fibrillation Acne Home Medications ?Medication ?Instructions ?Recorded ?Last Taken ?Type metoprolol succinate 50 mg 25 mg (1/2 x 50 mg) PO BID #90 tabs 01/24/24 Unknown Rx tablet,extended release 24 hr sotalol 80 mg tablet 80 mg PO BID #180 tabs 09/11/24 Unknown Rx Allergy/AdvReac Type Severity Reaction Status Date / Time nitrofurantoin Allergy flu like Verified 09/13/24 12:31 symptoms Family History Grandmother Rectal cancer Father TIA (transient ischemic attack) Surgical History History of radiofrequency ablation procedure for cardiac arrhythmia (08/06/20) History of implantable cardiac defibrillator (ICD) (08/09/20) History of cardioversion (04/2014) Breast implant status Social History Smoking Status: Never smoker alcohol intake: never substance use type: does not use caffeine: Yes what type of physical activity do you participate in: weight training and other details: elliptical frequency: 1-2 times per week seatbelt use: always do you feel safe at home: Yes additional social history: - [place]- Works at [employer] 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
[2024-09-18 07:13] LABS: Internal QC Validated? YES +Cl - CLEAR BKGD; Pregnancy, Urine Negative Negative
--- NOTE | 2024-09-18 07:47 | PCM.HP.BLA ---
History and Physical Date of Admission: 09/18/24 HPI Chief Complaint: UTI Details: YANNI WOODARD, is a 42 F who presents to the office today for follow up. PCP OV noting history of GERD with ongoing use of Carafate and omeprazole. She is also here to schedule colonoscopy. *BGI established 06.03.23 with reflux with regurgitation and globus sensation; no identifiable aggravating/alleviating factors. Omeprazole 20mg QD does not seem to make a difference; BID administration did not make a difference. Carafate was not taken as she forgot about it. No EGD history. OV 11.26.23- Pt stable since last visit. Still has occasional reflux. Has not taken Omeprazole as she doesn't feel like it makes a difference. Did follow up with PCP about anxiety as she feels her sx are worse with stress. 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 ROS Const Constitutional: No fatigue ENT ENT: No difficulty swallowing Gastro GI: Positive for bloating and constipation; No abdominal pain, belching, change in bowel habits, change in stool character, coffee ground emesis, cramping, diarrhea, heartburn, difficulty swallowing, feeling full early, excessive flatus, incontinent of stools, Vomiting blood/hematemesis, Blood in stool, loose stools, Black,tarry stools, nausea/dyspepsia, pain with swallowing, vomiting or other Musc Musculoskeletal: No joint pain Skin Skin: No yellowing of the eye or itchy eyes Psych Psychiatric: No anxiety and No depression Endo Endocrine: No fatigue Aller/Imm Allergy/Immunologic: No itchy eyes Robert/Lymp Hematologic/Lymphatic: Positive for easy bruising; No easy bleeding Exam Const General: cooperative and comfortable Nutritional Appearance: average body habitus and well nourished [facility] Head: normal to inspection Ears: hearing grossly normal bilaterally Nose: external nose normal Face and sinus: normal facial exam Mouth: oral mucosae normal Throat: posterior oropharynx normal Eyes General: appearance normal, both eyes and all related structures Neck Neck: normal visual inspection Chest Chest palpation & inspection: normal inspection of the chest and normal palpation of entire chest wall Resp Effort & Inspection: normal respiratory effort Auscultation: Bilateral: Clear to Auscultation Cardio Palpation: normal PMI Rate: regular rate Rhythm: regular rhythm GI Inspection: normal to inspection Auscultation: normal bowel sounds Percussion: normal to percussion Palpation: no hepatosplenomegaly Skin General: no rashes or lesions noted Neuro General: patient alert Extrem General: normal to inspection Psych Affect: normal affect Quality Reporting Tobacco Screening ([facility] 138) Smoking Status: Never smoker Assessment and Plan Assessment and Plan (1) GERD (gastroesophageal reflux disease): Status: Chronic Qualifiers: Esophagitis presence: esophagitis presence not specified Qualified Code(s): K21.9 - Gastro-esophageal reflux disease without esophagitis Plan: She underwent an upper endoscopy and was discovered to have mild reflux esophagitis. Her GE junction was normal. She had no hiatal hernia. She had good mucosal lining along with normal vascularity of her stomach and small bowel. Biopsies were taken for H. pylori and for Barrera's esophagus and they both were negative. She tried omeprazole in it did not make a difference in her upper GI symptoms. She actually feels better that we did not find anything. She tried an SSRI for her upper symptoms as she thought they were associated possibly with anxiety. She did not notice a difference so she is not currently taking anything for gastroesophageal reflux disease and nothing for anxiety. She is comfortable not taking something on a daily basis. I think this is a more functional problem with her upper GI tract that she is comfortable managing on a as needed basis. (2) she will undergo screening colonoscopy: She was explained alternatives, risk and benefits include not withstanding bleeding, infection, sepsis, perforation, need for emergent urgent . She ASA of 3. Coding
--- NOTE | 2024-09-18 08:06 | OP.COLON_ITS ---
Patient Name: Tyesha Ramirez Procedure Date: 09/18/2024 7:43 AM Date of : 1980 Age: 43 Procedure: Colonoscopy Indications: Screening for colorectal malignant neoplasm Providers: Cedric Renae DO Referring MD: Dali Hutson Medicines: Monitored Anesthesia Care Patient Profile: This is a 43 year old female. Refer to note in patient chart for documentation of history and physical. Last Colonoscopy: none. The patient's first colonoscopy is today. Complications: No immediate complications. Procedure: Pre-Anesthesia Assessment: - Prior to the procedure, a History and Physical was performed, and patient medications and allergies were reviewed. The patient is competent. The risks and benefits of the procedure and the sedation options and risks were discussed with the patient. All questions were answered and informed consent was obtained. Patient identification and proposed procedure were verified by the physician in the pre-procedure area. Mental Status Examination: alert and oriented. Airway Examination: normal oropharyngeal airway and neck mobility. Respiratory Examination: clear to auscultation. CV Examination: normal. Prophylactic Antibiotics: The patient does not require prophylactic antibiotics. Prior Anticoagulants: The patient has taken no anticoagulant or antiplatelet agents except for NSAID medication. ASA Grade Assessment: III - A patient with severe systemic disease. After reviewing the risks and benefits, the patient was deemed in satisfactory condition to undergo the procedure. The anesthesia plan was to use monitored anesthesia care (MAC). Immediately prior to administration of medications, the patient was re-assessed for adequacy to receive sedatives. The heart rate, respiratory rate, oxygen saturations, blood pressure, adequacy of pulmonary ventilation, and response to care were monitored throughout the procedure. The physical status of the patient was re-assessed after the procedure. After I obtained informed consent, the scope was passed under direct vision. Throughout the procedure, the patient's blood pressure, pulse, and oxygen saturations were monitored continuously. The Colonoscope was introduced through the anus and advanced to the terminal ileum. The colonoscopy was performed without difficulty. The patient tolerated the procedure well. The quality of the bowel preparation was adequate. The terminal ileum, ileocecal valve, appendiceal orifice, and rectum were photographed. Scope In: 7:52:52 AM Scope Withdrawal Time 0 hours 6 minutes 26 seconds Scope Out: 8:01:58 AM Total Procedure Duration Time 0 hours 9 minutes 6 seconds Findings: The perianal and digital rectal examinations were normal. An area of mildly congested mucosa was found in the recto-sigmoid colon, in the sigmoid colon and in the transverse colon. Biopsies were taken with a cold forceps for histology. Verification of patient identification for the specimen was done. Estimated blood loss was minimal. Two small-mouthed diverticula were found in the recto-sigmoid colon. The terminal ileum appeared normal. Impression: - Congested mucosa in the recto-sigmoid colon, in the sigmoid colon and in the transverse colon. Biopsied. - Diverticulosis in the recto-sigmoid colon. - The examined portion of the ileum was normal. Recommendation: - Discharge patient to home. - Resume previous diet. - Continue present medications. - Await pathology results. - Repeat colonoscopy in 10 years for screening purposes. Procedure Code(s): --- Professional --- 10495, Colonoscopy, flexible; with biopsy, single or multiple CPT copyright 2021 [employer]. All rights reserved. The codes documented in this report are preliminary and upon manager sound review may be revised to meet current compliance requirements. Cedric Renae DO 09/18/2024 8:06:14 AM This report has been signed electronically. Number of Addenda: 0 Note Initiated On: 09/18/2024 7:43 AM
--- NOTE | 2024-09-18 08:06 | OP.CCLET_ITS ---
09/18/2024 Dali Hutson [address] [place] [address] Re : Colonoscopy procedure for Tyesha Ramirez Dear Dr. Hutson This procedure was performed on Wednesday, September 18, 2024. My impressions and recommendations are as follows: Impressions : - Congested mucosa in the recto-sigmoid colon, in the sigmoid colon and in the transverse colon. Biopsied. - Diverticulosis in the recto-sigmoid colon. - The examined portion of the ileum was normal. Recommendations : - Discharge patient to home. - Resume previous diet. - Continue present medications. - Await pathology results. - Repeat colonoscopy in 10 years for screening purposes. My findings are described in the full procedure note, which is enclosed. If I can be of further assistance, please feel free to contact me at . Sincerely, Cedric Renae, 09/18/2024 8:06:14 AM This report has been signed electronically.
--- NOTE | 2024-09-18 08:10 | PCM.POST.ANE ---
Anesthesia: Postop Eval I Current Vital Signs Temperature: 97.5 F Pulse Rate: 86 Blood Pressure: 97/68 Respiratory Rate: 16 Pulse Ox: 100 Oxygen Delivery Method: Room Air Assessment Airway patent: Yes Spontaneous unlabored respirations: Yes Mental status: Awake and Calm nausea: No Vomiting: No Anesthesia Complication: No Fluid Hydration Crystalloid volume administer (ml): 40 Total IV fluid infused: 40 Progress Note Anesthesia document: Postop Eval 1 completed: Yes
--- NOTE | 2024-09-18 08:36 | PCM.POSTANE2 ---
Anesthesia Postop Eval I Sum Postop Eval Completion status Anesthesia document: Postop Eval 1 completed: Yes Anesthesia Postop Eval I Summary Anesthesia Postop Eval I Summary: Anesthesia Postop Eval I: Assessment Summary Airway patent Yes 09/18/24 08:11 [email or web address] Spontaneous unlabored Yes 09/18/24 08:11 [email or web address] respirations Mental status Awake,Calm 09/18/24 08:11 [email or web address] nausea No 09/18/24 08:11 [email or web address] Vomiting No 09/18/24 08:11 [email or web address] Anesthesia Postop Eval I: Fluid Summary Crystalloid volume administer 40 09/18/24 08:11 [email or web address] (ml) Colloids volume administered ( ml) Blood Product volume administered (ml) Total IV fluid infused 40 09/18/24 08:11 [email or web address] Anesthesia Postop Eval I: Summary Notes Anesthesia Complication No 09/18/24 08:11 [email or web address] Anesthesia Complication Comment: Post-operative progress note Anesthesia: Postop Eval II Evaluation Mental status: Awake Pain Level: 0 nausea: No Vomiting: No
== END 2024-09-18 08:52 | disposition home or self-care (01) ==
LOC: EN 06:37 → AC 06:38
PROVIDERS: Anesthesiology; PCP Family Medicine; Referring Provider Family Medicine; Visit Provider Internal Medicine Gastroenterology
PROC: 0DJD8ZZ Inspection of Lower Intestinal Tract, Via Natural or Artificial Opening Endoscopic (ICD-10-PCS; CPT 45378; principal; 2024-09-18 07:25)
DX: Z12.11 Encounter for screening for malignant neoplasm of colon (principal); K57.90 Diverticulosis of intestine, part unspecified, without perforation or abscess without bleeding; K21.9 Gastro-esophageal reflux disease without esophagitis
CPT/HCPCS: 45380; 81025; 88305; A4216; J2405

== ENCOUNTER → 2024-10-02 | Outpatient (CLI) | payer BC, SELFPAY ==
[2024-10-02 10:12] LABS: Bacteria 0 SEEN /hpf (None Seen); Mucous, Urine 0 SEEN /hpf (<or=2+); Red Blood Cells-Urine 0 SEEN /hpf (0-5)
[2024-10-02 10:25] LABS: Color, Urine Straw (Yellow); Glucose, Dipstick Normal (Normal); Ketone-Dipstick Negative (Negative); Leukocyte Esterase-Dipstick 500 /ul (Negative); Nitrite-Dipstick Negative (Negative); Occult Blood-Urine 250 /ul (Negative); Protein-Dipstick Negative (Negative); Specific Gravity, Urine 1.005 (1.002-1.030); Urine Bilirubin Dipstick Negative (Negative); Urine Clarity Clear (Clear); Urine Urobilinogen Normal (Normal)
[2024-10-02 10:40] LABS: Squamous Epithelial Cells - UA 0-5 SEEN /hpf (5-10); White Blood Cells 10-25 SEEN /hpf (0-5)
== END | disposition home or self-care (01) ==
PROVIDERS: PCP Family Medicine; Referring Provider Physician Assistant; Visit Provider Physician Assistant
DX: N39.0 Urinary tract infection, site not specified (principal); R39.15 Urgency of urination
CPT/HCPCS: 81001; 87077; 87086; 87088; 87186

== ENCOUNTER → 2025-07-25 | Outpatient (CLI) | payer BC, SELFPAY ==
[2025-07-25 12:20] LABS: Hematocrit 40.5 % (37-47); Hemoglobin 14.2 g/dL (12.0-15.0); Immature Granulocytes Count 0.020 X10^3/uL (0.0-0.0); Mean Corp Hgb Conc 35.1 g/dL (32-36); Mean Corpuscular Volume 84.7 fL (81-99); Mean Platelet Vol. 11.2 fl (6.2-12.0); NRBC Flagged by Analyzer 0 % (0-5); Platelet Count 234 K/mm3 (150-450); RBC Distribution Width CV 11.9 % (11.6-14.6); RBC Distribution Width SD 36.5 fl (35.1-43.9); Red Blood Count 4.78 M/mm3 (4.2-5.4); White Blood Count 5.8 K/mm3 (4.4-11.0)
[2025-07-25 13:12] LABS: Cholesterol 171 mg/dL (<=200); Ferritin 88 ng/mL (22-378); Free T3 3.1 pg/mL (2.18-3.98); Low Density Lipoprotein Calc. 103 mg/dL; Triglycerides 47 mg/dL; Very Low Density Lipoprotein 9 mg/dL (5-40); Vitamin B12 849 pg/mL (180-914); cholesterol:hdl ratio screen 2.90
[2025-07-25 13:42] LABS: Iron 70 ug/dL (50-170)
[2025-07-26 14:00] LABS: AST(SGOT) 17 U/L (<=31); Alanine Aminotransfer ALT/SGPT 13 U/L (<=34); Albumin, Serum 4.8 g/dL (3.5-5.0); Alkaline Phosphatase 48 U/L (35-104); Anion Gap 14 (5-15); BUN 19 mg/dL (4-19); BUN/Creat Ratio 22.3 RATIO (10-20); Calcium,Total 9.8 mg/dL (7.6-11.0); Carbon Dioxide 23.5 mmol/L (21.0-32.0); Chloride 103 mmol/L (98-108); Globulin 2.7 g/dL (2.2-4.2); Glucose 92 mg/dL (70-99); Potassium 4.1 mmol/L (3.3-5.1)
== END | disposition home or self-care (01) ==
PROVIDERS: PCP Family Medicine; Referring Provider Family Medicine; Visit Provider Family Medicine
DX: Z00.00 Encounter for general adult medical examination without abnormal findings (principal); Z51.81 Encounter for therapeutic drug level monitoring; E03.9 Hypothyroidism, unspecified; R53.83 Other fatigue
CPT/HCPCS: 36415; 80053; 80061; 82607; 82728; 83540; 84439; 84443; 84481; 85025